=== PATIENT | female | born 1960 | race Caucasian/White ===

== ENCOUNTER 2018-03-01 19:43 | Emergency (ER) | payer OTHER, MEDICAID ==
[2018-03-02] MEDS: KETOROLAC 30 MG INJ IM (00:13)
== END 2018-03-02 00:45 | disposition home or self-care (01) ==
LOC: FTE 19:43
DX: M54.2 Cervicalgia (principal); F17.210 Nicotine dependence, cigarettes, uncomplicated
CPT/HCPCS: 96372; 99284-25